=== PATIENT | male | born 1980 | race Caucasian/White ===

== ENCOUNTER → 2017-09-23 | Outpatient (CLI) | payer MEDICAID ==
[~2017-09-23] MED LIST: ALPARAZOLAM0.5 MG PO; FLUOXETINE 10MG10 MG PO; VISTARIL25 M1 PO; VISTARIL25 MG PO; XANAX 0.5MG TA0.5 MG PO; ZANTAC 150MG T150 MG PO
[2017-09-23 12:30] LABS: BUN 13 mg/dL (7-18); GFR (ESTIMATED) 84 ML/MIN (>60)
[2017-09-24 10:39] LABS: HBsAg Screen Negative (Negative); Hep A Ab, IgM Negative (Negative); Hep B Core Ab, IgM Negative (Negative); Hep C Virus Ab <0.1 (0.0-0.9)
== END ==
LOC: LAB 11:10
PROVIDERS: Nurse Practitioner Family
DX: R74.8 Abnormal levels of other serum enzymes (principal); R73.09 Other abnormal glucose; Z00.00 Encounter for general adult medical examination without abnormal findings